=== PATIENT | female | born 1985 | race Caucasian/White ===

== ENCOUNTER 2020-08-23 11:13 | Emergency (ER) | payer MEDICAID ==
[~2020-08-23] VITALS: Ht 177.8 cm; Wt 72.6 kg
[2020-08-23] MEDS ORDERED: PRENATAL FORMU1 EAC3 PO (12:00)
[2020-08-23] MEDS ORDERED: TRANEXAMIC ACI650 MG PO ×2 (14:00→14:08)
== END 2020-08-23 14:17 | disposition home or self-care (01) ==
LOC: ED 11:13
DX: O72.1 Other immediate postpartum hemorrhage (principal); Z88.8 Allergy status to other drugs, medicaments and biological substances
CPT/HCPCS: 80048; 84702; 85025; 85384; 85610; 85730; 99284